=== PATIENT | female | born 2000 | race Two or more races ===

== ENCOUNTER 2022-03-19 16:51 | Emergency (ER) | payer OTHER ==
[~2022-03-19] VITALS: Ht 160 cm; Wt 63.6 kg
[2022-03-19 17:04] VITALS: BP 137/75
[2022-03-19] MEDS ORDERED: CHOL100012 PO (17:23)
[2022-03-19] MEDS ORDERED: NORCO, ANEXSIA 5/325MG TABLET (HYDROcodone/ACETAMINOPHEN) PO ONE (21:50)
[2022-03-19] MEDS ORDERED: HYDR-3713 PO (21:50)
== END 2022-03-19 22:06 | disposition home or self-care (01) ==
LOC: M ED 16:51
DX: S82.91XA Unspecified fracture of right lower leg, initial encounter for closed fracture (principal); W01.0XXA Fall on same level from slipping, tripping and stumbling without subsequent striking against object, initial encounter; Y92.009 Unspecified place in unspecified non-institutional (private) residence as the place of occurrence of the external cause; Y93.19 Activity, other involving water and watercraft; Y99.9 Unspecified external cause status

== ENCOUNTER 2022-03-28 11:45 | Day surgery (SDC) | payer OTHER ==
[~2022-03-28] VITALS: Ht 160 cm; Wt 74.9 kg
[~2022-03-28 11:45] MED LIST: CHOL100012 PO; HYDR-3713 PO; LR 1,000 ML IV ONE; ceFAZolin SOD 2 GM in IV 1 EA IV ONE
[2022-03-28] MEDS ORDERED: TRANEXAMIC ACID 100 MG/ML 10ML VIAL As Ordered ONE (14:19)
[2022-03-28] MEDS ORDERED: ROCURONIUM BROMIDE 50 MG/5 ML VIAL As Ordered ONE (14:21)
[2022-03-28] MEDS ORDERED: LIDOCAINE 2% 100MG/5ML SDV (FOR ANES.) As Ordered ONE (14:21)
[2022-03-28] MEDS ORDERED: propofoL 200 MG/20 ML VIAL As Ordered ONE ×2 (14:22→14:29)
[2022-03-28] MEDS ORDERED: dexameTHASONE 10MG/1ML VIAL PRES.FREE (J1100 PER 1MG) XX ONE (14:35)
[2022-03-28] MEDS ORDERED: ROPIvacaine 0.5% 30ML INJECTION (J2795 PER 1MG) XX ONE (14:35)
[2022-03-28] MEDS ORDERED: LIDOCAINE 1% MDV 20ML VIAL XX ONE (14:40)
[2022-03-28] MEDS: fentaNYL 100 MCG/2 ML INJECTION IV PRN ×3 (15:18→19:25)
[2022-03-28] MEDS: MIDAZOLAM INJ 2MG/2ML VIAL (J2250 PER 1MG) IV PRN ×2 (15:18→15:24)
[2022-03-28] MEDS ORDERED: ONDANSETRON 4MG/2ML VIAL As Ordered ONE (15:42)
[2022-03-28] MEDS ORDERED: dexameTHASONE 4 MG/ML 1ML VIAL (J1100 PER 1MG) As Ordered ONE (15:42)
[2022-03-28] MEDS ORDERED: fentaNYL 100 MCG/2 ML INJECTION As Ordered ONE ×3 (17:40→18:59)
[2022-03-28] MEDS ORDERED: VANCOMYCIN 500MG/10ML VIAL As Ordered ONE (18:01)
[2022-03-28] MEDS ORDERED: BUPIVACAINE LIPOSOME/PF 1.3% 20ML VIAL (13.3MG/ML)(EXPAREL) As Ordered ONE (18:05)
[2022-03-28] MEDS ORDERED: KETOROLAC 60MG 2ML VIAL As Ordered ONE (18:06)
[2022-03-28] MEDS ORDERED: KETOROLAC 30 MG/ML 1ML VIAL IV PRN (18:36)
[2022-03-28] MEDS ORDERED: HYDROmorphone HCL 2MG/ML 1ML VIAL As Ordered ONE (18:59)
[2022-03-28] MEDS ORDERED: fentaNYL 100 MCG/2 ML INJECTION IV PRN (19:10)
[2022-03-28] MEDS ORDERED: LR 1,000 ML IV SCH (19:10)
[2022-03-28] MEDS ORDERED: ONDANSETRON 4MG/2ML VIAL IV PRN (19:10)
[2022-03-28] MEDS: oxyCODONE 5MG TAB PO PRN ×2 (19:21→19:57)
[2022-03-28 20:10] VITALS: BP 124/78
== END 2022-03-28 20:40 | disposition home or self-care (01) ==
LOC: M SDC 11:45
PROVIDERS: ATTEND Orthopaedic Surgery
DX: S82.841A Displaced bimalleolar fracture of right lower leg, initial encounter for closed fracture (principal); W09.0XXA Fall on or from playground slide, initial encounter; Y92.89 Other specified places as the place of occurrence of the external cause; Y93.14 Activity, water aerobics and water exercise; Y99.9 Unspecified external cause status; Z91.013 Allergy to seafood; D75.A Glucose-6-phosphate dehydrogenase (G6PD) deficiency without anemia
CPT/HCPCS: 27814; 76000; 81025; C1713; C9290; J0690; J1100; J1170; J1885; J2250; J2405; J3010; J3370